=== PATIENT | female | born 1950 | race Caucasian/White ===

== ENCOUNTER → 2017-04-04 | Outpatient (CLI) | payer OTHER | LOC: M.RAD 15:03 | DX: J84.10 Pulmonary fibrosis, unspecified (principal); M47.894 Other spondylosis, thoracic region; M25.78 Osteophyte, vertebrae; R06.02 Shortness of breath ==

== ENCOUNTER → 2017-11-13 | Outpatient (CLI) | payer OTHER | LOC: M.ULTRA 16:00 | DX: M79.89 Other specified soft tissue disorders (principal); M79.662 Pain in left lower leg; R60.9 Edema, unspecified; E03.9 Hypothyroidism, unspecified; E78.00 Pure hypercholesterolemia, unspecified ==

== ENCOUNTER → 2017-11-21 | Outpatient (CLI) | payer OTHER | LOC: M.RAD 10:24 | DX: Z12.31 Encounter for screening mammogram for malignant neoplasm of breast (principal); E03.9 Hypothyroidism, unspecified; E78.00 Pure hypercholesterolemia, unspecified ==

== ENCOUNTER 2019-05-14 07:33 | Inpatient (IN) | payer OTHER, MEDICAID ==
[2019-05-02 09:27] LABS: HEMATOCRIT 36.1 % (37.0-47.0); HEMOGLOBIN 12.2 gm/dL (12.0-15.0); MCH 29.8 pg (26.0-34.0); MCHC 33.9 g/dL (28.0-37.0); MPV 7.7 fl. (7.2-11.1); RBC 4.1 mil/uL (4.20-5.00); RDW-CV 12.6 % (10.5-14.5); WBC 4.9 thou/uL (4.0-11.0)
[2019-05-02 09:32] LABS: URINE BILIRUBIN NEGATIVE (Negative); URINE BLOOD TRACE (Negative); URINE CLARITY CLEAR; URINE COLOR YELLOW; URINE GLUCOSE-RANDOM NEGATIVE (Negative); URINE KETONES NEGATIVE (Negative); URINE LEUKOCYTES-REFLEX TRACE (Negative); URINE NITRITE-REFLEX NEGATIVE (Negative); URINE PROTEIN NEGATIVE (Negative); URINE SPECIFIC GRAVITY 1.015 (1.005-1.030); URINE UROBILINOGEN 0.2 E.U./dl (0.2-1.0)
[2019-05-02 09:36] LABS: PROTIME 10.1 Seconds (9.20-11.50)
[2019-05-02 09:40] LABS: ALBUMIN 3.9 g/dL (3.4-5.0); CALCIUM 8.7 mg/dL (8.5-10.1); POTASSIUM 4.5 mmol/L (3.5-5.1); TOTAL BILIRUBIN 0.2 mg/dL (<0.1-1.0); TOTAL PROTEIN 7.1 g/dL (6.4-8.2)
[2019-05-02 09:47] LABS: BACTERIA-REFLEX None Seen /HPF (None Seen); CASTS None Seen /LPF (None Seen); CRYSTALS None Seen /LPF (None Seen); MUCUS None Seen strn/LPF (None Seen); SQUAMOUS 4-10 Moderate /LPF (0-3); URINE RBC 0-2 Rare /HPF (0-2); URINE WBC-REFLEX 0-5 Rare /HPF (0-5)
--- NOTE | 2019-05-10 14:58 | EKG ---
[place] [address] ELECTROCARDIOGRAM REPORT Name: JENNIE HARPER Room: PRE IN [facility].#: [id number] Admission: Attend Phys: Piero Bacon Discharge: Date of : 50 Date of Service: 05/02/19931 Report #: [id number] THIS REPORT FOR: //name// [facility] Test Date: 2019-05-02 Test Time: 09:32:33 Pat Name: JENNIERAMÍREZ HARPER Department: Room: Gender: F Engineer Internship: : 1950 Requested By: Celestino Hamilton Order Number: [id number] Reading MD: Brain Easley Measurements Intervals [place] Rate: 62 P: 46 [place]: 153 QRS: 69 QRSD: 93 T: 72 QT: 429 QTc: 436 Interpretive Statements Sinus rhythm No previous ECG available for comparison Electronically Signed On 05-02-2019 10:35:39 ENGINE TURNER by Brain Easley [email or web address] <ELECTRONICALLY SIGNED> By: Brain Easley MD, [facility] 05/02/19 1035 0932 0932 Brain Easley MD, FACC /EPI
[~2019-05-14] VITALS: Ht 160 cm; Wt 63.5 kg
--- NOTE | ~2019-05-14 | OP ---
[address] [address] OPERATIVE REPORT Name: LEROYJENNIE L Room: [address] IN .R.#: [id number] Admission: 05/14/19 Attend Phys: Rowdy Valerio Discharge: Date of : 50 Report #: [id number] THIS REPORT FOR: //name// cc: Shannon Lamar MD, Katrina MD ~ THIS REPORT FOR: //name// CC: Shannon Bacon DATE OF SERVICE: 05/14/2019 PREOPERATIVE DIAGNOSIS: Right hip osteoarthritis. POSTOPERATIVE DIAGNOSIS: Right hip osteoarthritis. PROCEDURE: Right total hip arthroplasty. SURGEON: Celestino Hamilton II, DO STRIP TANK TENDER: FRANDY Yañez ANESTHESIA: General endotracheal. ESTIMATED BLOOD LOSS: 200 mL ANTIBIOTICS: Ancef preoperatively. DRAINS: Medium Hemovac. COMPLICATIONS: None. CONDITION OF THE PATIENT: Stable to recovery room. IMPLANTS: Listed in operative record and progress note. BRIEF HISTORY: The patient was seen in the preoperative area. Preoperative H and P was performed. Site was marked, questions were answered. Risks and benefits were discussed with the patient in detail about surgery. The patient wished to proceed, assuming all risks. DESCRIPTION OF PROCEDURE: The patient was taken to the operative suite and placed supine on the operating table, given appropriate anesthesia. The patient's operative hip was placed in the [place] table leg rosario and sterilely prepped and draped in supine position. Surgery began by longitudinal incision [facility] [address] [place] [address] OPERATIVE REPORT Name: JENNIE HARPER Room: [address] IN .R.#: [id number] Admission: 05/14/19 Attend Phys: Rowdy Valerio Discharge: Date of : 50 Report #: [id number] over the anterior portion of the hip. This was carried down to subcutaneous tissues. A small cory was made in the tensor fascia. It was then split along its fibers and retracted laterally. An H capsulotomy was then performed and careful hemostasis was obtained with electrocautery and Aquamantys. The head and neck cutting alignment guide was checked with fluoroscopic guidance. Appropriate cut was then made to the head and this was removed. Attention was turned to the acetabulum. Excess labrum was removed. It was then reamed in sequential fashion up to appropriate size. This showed excellent bleeding bone in excellent position on fluoroscopic guidance. The acetabular cup was then malleted into position and secured with cancellous screws. Metal liner was then applied. The patient's leg was then rotated and extended in the [place] table to expose the femur. It was then broached in sequential fashion up to appropriate size. The appropriate neck was then trialed with appropriate head length and shown to have excellent fit and fill and excellent stability of hip throughout all range of motion. These trials were then removed and the final stem was then malleted into position and the final head and neck were then malleted into position. It was reduced in appropriate fashion, checked with C-arm for appropriate leg length and showed excellent length throughout the exam without evidence of dislocation upon range of motion and shuck testing. The wound was then copiously irrigated. Hemostasis was obtained with electrocautery and Aquamantys. Pain cocktail was injected. PRP gel sprayed throughout internal aspects of the hip and drain was activated. The H capsulotomy was then closed with #1 Vicryl in [id number] fashion. Tensor fascia was closed with #1 Vicryl in running fashion. Skin was closed with 2-0 Vicryl and running 3-0 Monocryl with Dermabond and sterile dressing applied. The patient transported to recovery room in stable condition. Counts were correct throughout the procedure. By: [id number] Hamilton II, DO /nt
[~2019-05-14 07:33] MED LIST: LEVO-T75 MCG PO; LISINOPRIL10 MG PO; LYRICA100 MG PO; MIRALAX17 GM PO; NAPROSYN500 MG PO; PROZAC40 MG PO; TRAZODONE 150150 M1 PO; ULTRAM 50MG TAB50 MG PO
[2019-05-14 08:43] VITALS: BP 122/83
[2019-05-14 11:45] VITALS: BP 99/53
[2019-05-14 16:20] VITALS: BP 111/50
--- NOTE | 2019-05-14 16:58 | NUR ---
PATIENT ARRIVED TO UNIT AT APPROX 1140. ALERT AND ORIENTED X4. ASSESSMENT COMPLETED AND CHARTED. VSS ON 2 LITERS 02 WITH END TITLE IN PLACE. PAIN RATED AT 3/10. FLUIDS STARTED AND INFUSED ORDERED. ANTIBIOTIC INFUSED ORDEREED. PATIENT UP WITH GAIT BELT AND WALKER. USING THE BATHROOM AND VOIDING WITHOUT ISSUE. HEMAVAC IN PLACE AT RIGHT HIP, MEPILEX IN PLACE WITH NO DRAINAGE NOTED. ORAL PAIN MEDICATION STARTED. NO COMPLAINTS OF NAUSEA. FALL PRECAUTIONS IN PLACE. CALL LIGHT WITHIN REACH. HOURLY ROUNDS COMPLETED. WILL CONTINUE WITH PLAN OF CARE.
[2019-05-14 20:30] VITALS: BP 134/61
[2019-05-15] VITALS: BP 102/57
[2019-05-15 03:08] LABS: HEMOGLOBIN 9.5 gm/dL (12.0-15.0); MCH 29.4 pg (26.0-34.0); MCHC 33.9 g/dL (28.0-37.0); MCV 86.8 fL (80.0-100.0); MPV 7.4 fl. (7.2-11.1); RBC 3.22 mil/uL (4.20-5.00); RDW-CV 12.3 % (10.5-14.5)
[2019-05-15 03:10] LABS: CALCIUM 7.4 mg/dL (8.5-10.1); CREATININE 0.9 mg/dL (0.6-1.3); MAGNESIUM 1.7 mg/dL (1.8-2.4); POTASSIUM 4.5 mmol/L (3.5-5.1)
[2019-05-15 04:00] VITALS: BP 110/52
--- NOTE | 2019-05-15 05:05 | NUR ---
PATIENT HAS REMAINED ALERT AND ORIENTED X 4 THROUGHOUT THE SHIFT AND RESTING QUIETLY ON HOURLY ROUNDS. IMPROVED PAIN CONTROL WITH Q3-4 HOUR INTERVENTION. DID HAVE BRIEF PERIOD AT HS WITH MUSCLE SPASM RIGHT GROIN WHICH RESOLVED. DRESSING RIGHT HIP CLEAN AND DRY. SCANT OUTPUT FROM HEMOVAC. BRIAN HOSE AND FOOT PUMPS BILAT LE UTILIZED PER ORDER. PRN ICE PACK RIGHT HIP. VITAL SIGNS STABLE WITH O2 ON AT 2L/MIN AND CONTINUOUS CAPNOGRAPHY. UP TO BSC AND TO BR WITH MIN/MOD ASSIST SUPINE TO SIT AND MIN/CGA FOR AMBULATION WITH GAIT BELT AND WALKER. NO NAUSEA. ADEQUATE VOIDS. HOPES TO GO HOME TODAY. CONTINUE TO MONITOR.
[2019-05-15 09:52] VITALS: BP 98/57
--- NOTE | 2019-05-15 11:11 | NUR ---
cm completed initial assessment to discuss d/c planning. pt a&ox4. pt lives at home alone. pt states she has family support and a good friend who has stayed w/her and plans to cont to stay w/her until she has recovered to help out. pt would like [facility] to cont pt. pt has no preference. pt signed "vendor choice" form and cm placed form in pt chart. pt is independent w/adls. active. drives. pt has walker, shower bench, cane. cm to remain avail to assit as needed.
[2019-05-15 16:00] VITALS: BP 139/67
[2019-05-15 19:40] VITALS: BP 120/57
--- NOTE | 2019-05-15 20:24 | NUR ---
ASSUMED CARE OF PATIENT AT APPROX 0730. ALERT AND ORIENTED X4. ASSESSMENT COMPLETED AND CHARTED. VSS ON ROOM AIR. COMPLAINT OF PAIN MANAGED WITH ORAL OXY IR AND TRAMADOL. PATIENT HAVING MUSCLE SPASMS IN HER RIGHT HIP/THIGH AREA AND HER NECK THAT WERE CAUSING SIGNIFICANT PAIN. DR SAUL CALLED AND ORDER FOR FLEXERIL GIVEN. PATIENT UP WITH GAIT BELT AND WALKER WITH THERAPIES TODAY AND PROGRESSING TOWARD GOALS. PATIENT PAIN UNDER CONTROL AFTER REST AND OXY. NO OTHER COMPLAINTS THIS SHIFT. FALL PRECAUTIONS IN PLACE. CALL LIGHT WITHIN REACH. HOURLY ROUNDS COMPLETED. WILL CONTINUE WITH PLAN OF CARE.
[2019-05-16 02:30] VITALS: BP 109/62
[2019-05-16 03:01] LABS: HEMATOCRIT 24.7 % (37.0-47.0); HEMOGLOBIN 8.5 gm/dL (12.0-15.0); MCH 29.5 pg (26.0-34.0); MCHC 34.2 g/dL (28.0-37.0); MCV 86.2 fL (80.0-100.0); MPV 7.5 fl. (7.2-11.1); RBC 2.87 mil/uL (4.20-5.00); RDW-CV 11.8 % (10.5-14.5); WBC 8.4 thou/uL (4.0-11.0)
[2019-05-16 03:14] LABS: CALCIUM 7.7 mg/dL (8.5-10.1); CREATININE 0.9 mg/dL (0.6-1.3); MAGNESIUM 1.7 mg/dL (1.8-2.4); POTASSIUM 3.9 mmol/L (3.5-5.1)
--- NOTE | 2019-05-16 04:07 | NUR ---
ASSUMED CARE OF PT 05/15/19 AT APPROX 1930. PT A&OX4, ON ROOM AIR, VSS, PAIN MEDS REQUESTED AND GIVEN ORDERED. ASSESSMENTS AND HOURLY ROUNDINGS COMPLETED. WILL CONTINUE TO MONITOR.
[2019-05-16 09:50] VITALS: BP 101/50
--- NOTE | 2019-05-16 12:26 | NUR ---
cm faxed referral to [facility] for review [phone].
--- NOTE | 2019-05-16 19:06 | NUR ---
PATIENT FORGETFUL AT TIMES. SEE PHYSICAL THERAPY NOTES. HRLY ROUNDS DONE. USING FWW AND GAIT BELT W/ TRANSFERS AND AMBULATION. NOTED NOT BENDING KNEE TO RLE, NOTED SLIDING FOOT ALONG FLOOR. MOD ENC NEEDED. PLEASANT AND CONVERSANT. PATIENT UP TO BSC AT THIS TIME. CALL LIGHT IN REACH. ~TJRN
[2019-05-16 20:30] VITALS: BP 175/89
[2019-05-17] VITALS: BP 160/85
[2019-05-17 04:00] VITALS: BP 163/88
[2019-05-17 04:17] LABS: CALCIUM 8.5 mg/dL (8.5-10.1); CREATININE 0.8 mg/dL (0.6-1.3); POTASSIUM 3.9 mmol/L (3.5-5.1)
--- NOTE | 2019-05-17 06:41 | NUR ---
Alert and oriented x 4 but forgetful. Anterior approach rt total hip, mepilex dressing is dry and intact. She is up with assist x 1,walker and gaitbelt to the bedside commode but she needs a lot of cueing. We have stuck to her fluid restriction and she has had 200 mls this shift. She doesn't ask for pain meds but she did say it is very painful when she gets up. She had pain meds x 2 this shift. She was incontinent of urine x 2 this shift. She had BM last evening. She slept well.
[2019-05-17 08:30] VITALS: BP 119/61
--- NOTE | 2019-05-17 13:30 | NUR ---
PT.TO DISCHARGE TDODAY WITH HOME HEALTH. NOTIFIED ANDREAS/ANASTACIA THAT PT.WAS DISCHARGING TODAY. FAXED ORDERS TO HER. THEY WILL CALL HER TO SET UP APPT. [facility] CALLED IN PRESCRIPTION FOR XARELTO WRITTEN TO PT.S PHARMACY. COPAY IS $3.60. PT.WAITING ON HER RIDE.
[2019-05-17 13:57] VITALS: BP 119/61
[2019-05-17] MEDS ORDERED: COLACE100 MG PO (14:08)
[2019-05-17] MEDS ORDERED: FAMOTIDINE 20 M20 MG PO (14:09)
[2019-05-17] MEDS ORDERED: XARELTO10 M1 PO (14:10)
[2019-05-17] MEDS ORDERED: NAPROSYN500 M1 PO (14:12)
[2019-05-17] MEDS ORDERED: PERCOCET 5-3251 EACH PO (14:14)
[2019-05-17] MEDS ORDERED: MIRALAX119 GM PO (14:15)
[2019-05-17 16:00] VITALS: BP 111/65
--- NOTE | 2019-05-17 17:12 | NUR ---
PT BEING DISCHARGED TO HOME WITH HOME HEALTH. IV REMOVED. RT ANTERIOR HIP INCISION MEPELIX DRESSING IS CLEAN, DRY, AND ,INTACT. ALL DISCHARGE INSTRUCTIONS REVIEWED WITH THE PT. PT HAS ALL PAPERWORK AND ALL BELONGINGS. PT TRANSPORTED TO PERSONAL VEHICLE VIA W/C ACCOMPANIED BY STAFF. pT HAS PRESCRIPTION.
== END 2019-05-17 16:00 | disposition home health service (06) | DRG 470 ==
LOC: M.ORTHSURG 07:33 → M.TBA 07:33 → M.PRE 09:42 → M.ORTHSURG 11:49 → M.PRE 12:12 → M.ORTHSURG 05-17 16:00
PROVIDERS: Family Medicine; Orthopaedic Surgery; ADMIT Internal Medicine
PROC: 0SR90JZ Replacement of Right Hip Joint with Synthetic Substitute, Open Approach (ICD-10-PCS; principal; 2019-05-14)
DX: M16.11 Unilateral primary osteoarthritis, right hip (principal); E87.1 Hypo-osmolality and hyponatremia; E89.0 Postprocedural hypothyroidism; I10 Essential (primary) hypertension; F41.9 Anxiety disorder, unspecified; F32.9 Major depressive disorder, single episode, unspecified; M79.7 Fibromyalgia; Z87.891 Personal history of nicotine dependence; Z79.899 Other long term (current) drug therapy; Z90.710 Acquired absence of both cervix and uterus; Z79.01 Long term (current) use of anticoagulants

== ENCOUNTER → 2019-09-26 | Outpatient (CLI) | payer OTHER, MEDICAID ==
[~2019-09-26] MED LIST changes: +COLACE100 MG PO; +FAMOTIDINE 20 M20 MG PO; +MIRALAX119 GM PO; +NAPROSYN500 M1 PO; +PERCOCET 5-3251 EACH PO; +XARELTO10 M1 PO
--- NOTE | 2019-09-26 16:46 | CARDNUC ---
[place] [address] CARDIAC NUCLEAR IMAGING REPORT Name: LEROYJENNIE L Room: [facility]#: [id number] Admission: 09/26/19 Attend Phys: Soledad Patel, Discharge: Date of : 50 Date of Service: 09/26/19 1645 Report #: [id number] THIS REPORT FOR: cc: Shannon Lamar MD, Katrina MD Liston, Michael J. MD [facility] ~ APPROVED REPORT Imaging Protocol: Stress Tc-99m/Rest Tc-99m 1 day Study performed: 09/26/2019 13:00:00 Indication: Abnormal EKG Patient Location: Out-Patient Stress Tech: Cristina Shea Stress Nurse: Areli St RN Ht: 5 ft 3 in Wt: 134 lbs BSA: 1.63 m2 BMI: 23.73 Medical History Medical History: CAD non obstructive, Former Smoker, HTN, Hyperlipidemia Medications: losartan Allergies: No known drug allergies Cardiac Risk Factors: Age, FHX of CAD, HTN, Hyperlipidemia, Past Smoker Exercise History: Indeterminate Resting Data Rest SPECT myocardial perfusion imaging was performed in supine position 30 minutes following the intravenous injection of 10.5 mCi of Tc-99m Sestamibi. Time of rest injection: 13:10 Date: 09/26/2019 Administration Route: IV Administration Site: Right Arm Pharmacologic Stress Pharmacologic stress test was performed by injecting Regadenoson 0.4 mg IV push over 10-15 seconds immediately followed by the intravenous injection of 31.0 mCi of Tc-99m Sestamibi. Time of stress injection: 14:45 Date: 09/26/2019 Administration Route: IV Administration Site: Right Arm Heart Rate at time of stress injection: 107 [place] [address] CARDIAC NUCLEAR IMAGING REPORT Name: JENNIE HARPER [id number] Admission: 09/26/19 Attend Phys: Soledad Patel, Discharge: Date of : 50 Date of Service: 09/26/19 1645 Report #: [id number] Gated Stress SPECT was performed 40 minutes after stress injection. The images were gated to evaluate regional wall motion and calculate left ventricular ejection fraction. Prone imaging was performed. Stress Test Details Stress Test: Pharmacologic stress testing performed using 0.4 mg of regadenoson per 5 mL given IV over 10 seconds. Reason for pharmacologic stress test: arthritis. 60 mg caffeine given for nausea. HR Max Heart Rate (APMHR): 151 bpm Resting HR: 70 bpm Target HR (85% APMHR): 128 bpm Max HR Achieved: 107 bpm % of APMHR: 70 Recovery HR: 88 bpm BP Resting BP: 189/94 mmHg Max BP: 160/75 mmHg Recovery BP: 145/72 mmHg ECG Resting ECG: Sinus Rhythm Stress ECG: Sinus Tachycardia ST Change: None Arrhythmia: None Recovery ECG: Sinus Rhythm Recovery ST Change: None Recovery Arrhythmia: None Clinical Reason for Termination: Completed protocol Exercise duration: 0 min sec Exercise capacity: 1 METs The patient tolerated Lexiscan infusion without significant cardiac symptoms. Nurse Comments pt has had bilater hip and knee replacements and is not able to walk on treadmill per dr patel Stress ECG Conclusion The baseline twelve-lead EKG shows sinus rhythm without significant ST segment abnormality. EKGs obtained during and post Lexiscan infusion show sinus rhythm and sinus tachycardia with no significant ST segment or T wave changes when compared [place] [address] CARDIAC NUCLEAR IMAGING REPORT Name: JENNIE HARPER Room: [facility]#: [id number] Admission: 09/26/19 Attend Phys: Soledad Patel, Discharge: Date of : 50 Date of Service: 09/26/19 1645 Report #: [id number] no stress-induced arrhythmias. Study Quality Study: Good Artifact: Mild Breast artifact Study Data At rest, the left ventricular ejection fraction was 73%.. Post stress, the left ventricular ejection was 72%.. TID = 0.98. Perfusion Perfusion images obtained in the supine position show mild photopenia in the mid anterior wall that resolves with post-rest prone imaging suggesting breast attenuation artifact. No other significant fixed or reversible defects are identified. Wall Motion Normal left ventricular wall motion. Nuclear Conclusion ECG Findings: negative for ischemia Clinical Findings: negative for ischemia Nuclear Findings: negative for ischemia Exercise Capacity: not assessed Left Ventricular Function: normal Risk Study: low Perfusion study show no defect that suggests infarct or ischemia. Left ventricular systolic function is normal on gated studies. This is a low risk study. <Conclusion> The baseline twelve-lead EKG shows sinus rhythm without significant ST segment abnormality. EKGs obtained during and post Lexiscan infusion show sinus rhythm and sinus tachycardia with no significant ST segment or T wave changes when compared to baseline. There were no stress-induced arrhythmias. <ELECTRONICALLY SIGNED> By: Yared Mena MD, FACC 09/26/19 1645 44 44 Yared Mena MD, FACC /INF
== END ==
LOC: M.NUC 09-04 15:55
PROVIDERS: ATTEND Internal Medicine
DX: R94.31 Abnormal electrocardiogram [ECG] [EKG] (principal); R00.0 Tachycardia, unspecified; I10 Essential (primary) hypertension; E78.2 Mixed hyperlipidemia; Z82.49 Family history of ischemic heart disease and other diseases of the circulatory system

== ENCOUNTER → 2019-10-09 | Outpatient (CLI) | payer OTHER, MEDICAID | LOC: M.ULTRA 14:27 | PROVIDERS: ATTEND Nurse Practitioner Family | DX: Z00.00 Encounter for general adult medical examination without abnormal findings (principal); M79.605 Pain in left leg ==

== ENCOUNTER → 2020-08-21 | Outpatient (CLI) | payer OTHER, MEDICAID | LOC: M.ULTRA 09:30 | PROVIDERS: ATTEND Family Medicine | DX: N28.1 Cyst of kidney, acquired (principal); Z90.49 Acquired absence of other specified parts of digestive tract ==

== ENCOUNTER → 2020-09-09 | Outpatient (CLI) | payer OTHER, MEDICAID | LOC: M.CT 07:56 | PROVIDERS: ATTEND Family Medicine | DX: N28.1 Cyst of kidney, acquired (principal); Q63.2 Ectopic kidney; Z96.643 Presence of artificial hip joint, bilateral; M47.819 Spondylosis without myelopathy or radiculopathy, site unspecified; M41.86 Other forms of scoliosis, lumbar region ==

== ENCOUNTER → 2020-10-05 | Outpatient (CLI) | payer OTHER, MEDICAID ==
[2020-10-05 10:06] LABS: ABSOLUTE BASOPHILS 0.1 thou/uL (0.0-0.2); ABSOLUTE EOSINOPHILS 0.3 thou/uL (0.0-0.7); ABSOLUTE LYMPHOCYTES 1.2 thou/uL (0.8-5.3); ABSOLUTE MONOCYTES 0.3 thou/uL (0.0-1.2); ABSOLUTE NEUTROPHILS 3.6 thou/uL (1.6-8.1); EOSINOPHILS 5.1 %; HEMATOCRIT 35.6 % (37.0-47.0); HEMOGLOBIN 11.7 gm/dL (12.0-15.0); LYMPHOCYTES 22.4 %; MCH 26.9 pg (26.0-34.0); MCHC 32.9 g/dL (28.0-37.0); MCV 81.8 fL (80.0-100.0); MPV 7.4 fl. (7.2-11.1); NUCLEATED RBCS 0 /100WBC; PLATELET COUNT* 361 thou/uL (150-400); POLYS 65.5 %; RBC 4.35 mil/uL (4.20-5.00); RDW-CV 14.5 % (10.5-14.5); WBC 5.5 thou/uL (4.0-11.0)
[2020-10-05 10:19] LABS: ALBUMIN 3.9 g/dL (3.4-5.0); CALCIUM 8.4 mg/dL (8.5-10.1); CREATININE 1.2 mg/dL (0.6-1.3); POTASSIUM 4.1 mmol/L (3.5-5.1); TOTAL BILIRUBIN 0.3 mg/dL (<0.1-1.0); TOTAL PROTEIN 7.5 g/dL (6.4-8.2)
[2020-10-05 11:22] LABS: ESR (SEDRATE) 11 mm/hr (0-30)
[2020-10-06 14:07] LABS: GLOBULIN TOTAL 3.2 g/dL (2.2-3.9); M-SPIKE Not Observed g/dL (Not Observed)
== END ==
LOC: M.LAB 09:28
PROVIDERS: ATTEND Internal Medicine Gastroenterology
DX: D50.9 Iron deficiency anemia, unspecified (principal)